=== PATIENT | female | born 1955 | race Caucasian/White ===

== ENCOUNTER 2016-12-27 12:46 | Emergency (ER) | payer OTHER, BC ==
--- NOTE | 2016-12-27 13:30 | EDM.PDOC ---
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 Slipped off when it was icy and fell down doing the "splits" Feels that "my knee is dislocated." Has had a lot of previous issues with her knee and was recently told she has arthritis in it by orthosurgeon. Denies any numbness or tingling to the distal foot. Pain is mainly in the knee or distal to the knee. Onset: Today Location: Reports: Lower Extremity, Right Quality: Reports: Sharp Severity: Severe Worsens with: Reports: Movement Right Knee Pain Score (Numeric/FACES): 8 - Related Data Allergies Allergy/AdvReac Type Severity Reaction Status Date / Time cortisone Allergy Rash Verified 12/27/16 12:52 Penicillins Allergy Hives Verified 12/27/16 12:52 Home Meds: Home Meds DULoxetine [Cymbalta] 20 mg PO DAILY 12/27/16 [History] Furosemide 40 mg PO DAILY 12/27/16 [History] Valsartan [Diovan] 160 mg PO DAILY 12/27/16 [History] atorvaSTATin [Lipitor] 20 mg PO DAILY 12/27/16 [History] Past Medical History Cardiovascular History: Reports: High Cholesterol, Hypertension Respiratory History: Reports: Asthma Genitourinary History: Reports: None MANAGER PMO History: Reports: Ectopic , Endometriosis Musculoskeletal History: Reports: Arthritis, Fibromyalgia Neurological History: Reports: TIA Endocrine/Metabolic History: Reports: Obesity/BMI 30+ - Past Surgical History Female Surgical History: Reports: Hysterectomy Neurological Surgical History: Reports: Discectomy Musculoskeletal Surgical History: Reports: None Social & Family History - Family History Family Medical History: Noncontributory - Tobacco Use Smoking Status *Q: Former Smoker Used Tobacco, but Quit: Yes Month Tobacco Last Used: 30yrs - Recreational Drug Use Recreational Drug Use: No Review of Systems - Review of Systems Review Of Systems: See Below Eyes: Reports: No Symptoms Ears: Reports: No Symptoms Nose: Reports: No Symptoms Mouth/Throat: Reports: No Symptoms Respiratory: Reports: No Symptoms Cardiovascular: Reports: No Symptoms GI/Abdominal: Reports: No Symptoms Musculoskeletal: Reports: Leg Pain, Joint Pain Skin: Denies: Bruising, Wound Neurological: Reports: No Symptoms ED EXAM, GENERAL - Physical Exam Exam: See Below Exam Limited By: No Limitations General Appearance: Alert, WD/WN, Moderate Distress Nose: Normal Inspection Throat/Mouth: Normal Inspection Head: Atraumatic, Normocephalic Neck: Normal Inspection, Supple, Non-Tender, Full Range of Motion Respiratory/Chest: No Respiratory Distress, Lungs Clear, Normal Breath Sounds Cardiovascular: Regular Rate, Rhythm, No Edema GI/Abdominal: Normal Bowel Sounds, Soft, Non-Tender, No Organomegaly Extremities: No Pedal Edema, Joint Swelling, Leg Pain (Pain to right knee with any movement or touch. Good CMS distally. Good pulses noted bilaterally. No open area or bruising at this time.) Neurological: Alert, Oriented Course - Vital Signs Last Recorded V/S: Last Vital Signs Temp 96.6 F 12/27/16 12:47 Pulse 79 12/27/16 12:47 Resp 16 12/27/16 12:47 BP 155/91 H 12/27/16 12:47 Pulse Ox 98 12/27/16 12:47 - Orders/Labs/Meds Orders: Active Orders 24 hr Category Date Time Status Knee 1V or 2V Rt [CR] Stat Exams 12/27/16 13:07 Taken Knee wo Cont Rt [CT] Stat Exams 12/27/16 14:58 Taken Meds: Medications Discontinued Medications Generic Name Dose Route Start Last Admin Trade Name Terrence PRN Reason Stop Dose Admin Fentanyl 50 mcg 12/27/16 13:52 12/27/16 14:00 Sublimaze IM 12/27/16 13:53 50 mcg ONETIME ONE Administration Oxycodone/Acetaminophen 2 tab 12/27/16 14:13 12/27/16 14:19 Percocet 325-5 Mg PO 12/27/16 14:14 2 tab ONETIME ONE Administration Departure - Departure Time of Disposition: 16:03 Disposition: Home, Self-Care 01 Clinical Impression: Tibial plateau fracture, right Qualifiers: Encounter type: initial encounter Fracture type: closed Qualified Code(s): S82.141A - Displaced bicondylar fracture of right tibia, initial encounter for closed fracture - Discharge Information Forms: ED Department Discharge Additional Instructions: Appointment with Dr. Stef Lizarraga at [facility] January 05 at 9:15. [address] [facility] Leave immobilizer on as much as possible but can take it off in bed or when resting. Non weightbearing until seen by Dr Zai Ruvalcaba 5 take 1-2 every 4 hours as needed for pain May use tylenol or advil for less severe pain - My Orders Last 24 Hours: My Active Orders 12/27/16 13:07 Knee 1V or 2V Rt [CR] Stat 12/27/16 14:58 Knee wo Cont Rt [CT] Stat - Assessment/Plan Last 24 Hours: My Active Orders 12/27/16 13:07 Knee 1V or 2V Rt [CR] Stat 12/27/16 14:58 Knee wo Cont Rt [CT] Stat
[2016-12-27] MEDS ORDERED: fentaNYL 100 MCG/2 ML SDV IM ONE (13:52)
[2016-12-27] MEDS ORDERED: Acetaminophen/oxyCODONE 325-5 MG Tab PO ONE (14:13)
[2016-12-27] MEDS ORDERED: Take Home: Acetaminophen/HYDROcodone 325-5 MG, 2 Tab Pack PO ONE (16:08)
== END 2016-12-27 16:30 | disposition home or self-care (01) ==
LOC: CC.ED 12:46
DX: S82.141A Displaced bicondylar fracture of right tibia, initial encounter for closed fracture (principal); E78.00 Pure hypercholesterolemia, unspecified; I10 Essential (primary) hypertension; E66.9 Obesity, unspecified; Z87.891 Personal history of nicotine dependence; Z88.0 Allergy status to penicillin; Z88.8 Allergy status to other drugs, medicaments and biological substances; Z79.899 Other long term (current) drug therapy; W19.XXXA Unspecified fall, initial encounter
CPT/HCPCS: 73560; 73700; 96372; 99284; A9270; J3010